=== PATIENT | female | born 1985 | race Caucasian/White ===

== ENCOUNTER → 2020-01-12 | Outpatient (CLI) | payer SELFPAY ==
--- NOTE | 2020-01-12 18:27 | Diagnostic Imaging Report ---
PROCEDURE: US Non-ob pelvis comp/trans. TECHNIQUE: Multiple realtime grayscale images were obtained of the pelvis in various projections endovaginally. Transabdominal imaging was also performed. INDICATION: Chronic pelvic pain COMPARISON: None available. FINDINGS: The uterus measures 7.3 x 4.0 x 5.3 cm. The myometrium has diffuse heterogeneous echogenicity without discrete mass. The endometrium measures up to 0.3 cm where visualized, and is normal in echogenicity. At the apex of the endometrial canal, there is an anechoic cystic structure measuring 1.3 x 1.2 cm. The right ovary measures 3.2 x 1.4 x 2.6 cm. The left ovary measures 3.8 x 2.2 x 3.3 cm. Both ovaries are physiologic in appearance. Blood flow is seen in both ovaries on color doppler imaging. No suspicious adnexal mass or fluid collection. No free pelvic fluid. IMPRESSION: 1. Cystic structure in the fundus of the uterus is indeterminate. This may represent some trapped fluid within the endometrial canal. Consider followup pelvic ultrasound in 6-12 weeks for reassessment. 2. Physiologic appearance of the ovaries. Dictated by: Dictated on workstation # [id number]
== END ==
LOC: RAD 11:56
PROVIDERS: ATTEND Obstetrics & Gynecology
DX: N85.8 Other specified noninflammatory disorders of uterus (principal)
CPT/HCPCS: 76830; 76856

== ENCOUNTER 2020-02-17 10:25 | Outpatient (RCR) | payer SELFPAY ==
[~2020-02-17] VITALS: Ht 152 cm; Wt 56.8 kg
[~2020-02-17 10:25] MED LIST: RT-ALBUINH IH
== END 2020-02-17 10:27 | disposition home or self-care (01) ==
LOC: PREOP 10:25
PROVIDERS: ATTEND Obstetrics & Gynecology
DX: Z01.818 Encounter for other preprocedural examination (principal)

== ENCOUNTER 2021-08-20 18:37 | Emergency (ER) | payer SELFPAY ==
[~2021-08-20] VITALS: Ht 152 cm; Wt 58.9 kg
[2021-08-20 18:45] VITALS: BP 150/102
--- NOTE | 2021-08-20 18:51 | ED GU-Female ---
General Stated Complaint: PELVIC PAIN History of Present Illness Date Seen by Provider: August 20, 2021 Time Seen by Provider: 18:47 Initial Comments 36 year old female presents for pelvic pain that has been present for several years. Over the last 3-4 months it has worsened, she takes ibuprofen but hasn't taken any today. Symptoms are not worse today, then they have been for the last few months. She was scheduled for biopsy with Dr. Potter approx 2 months ago after cysts/mass were noted on Ultrasound but "didn't get up her for the surgery." No other excuse provided. Patient is unsure if Ultrasound was completed in the office or hospital. Last reported US at this facility was 01/12/20 and showed cystic structure in uterus. She reports occasional vaginal bleeding, but no regular cycle. Had tubal ligation in the past and known uterine cysts. Denies vomiting or diarrhea, but occasional nausea. Patient called Dr. Potter's office and was told by a boarding mother to come to an ED to have a work up. She was referred to Dr. Potter by [facility]. She has difficulty urinating, at times but is always able to urinate throughout the day. Timing/Duration: intermittent Severity/Quality: moderate Location: suprapubic Activities at Onset: none Associated Symptoms: abdominal pain, dysuria (chronic for approx 2 years); No fever/chills, No lower back pain; nausea/vomiting (JAY JAY SADLER) Allergies and Home Medications Allergies Coded Allergies: No Known Drug Allergies (Unverified , 02/17/20) Patient Home Medication List Home Medication List Reviewed: Yes (JAY JAY SADLER) Albuterol Sulfate (Proair Hfa) 1 Puff Puff, 2 PUFF IH Q4H PRN for SHORTNESS OF BREATH, (Reported) Entered as Reported by: WALLACE MCCLAIN on 02/17/20 1001 Ibuprofen (Ibuprofen) 800 Mg Tablet, 800 MG PO Q8H PRN for PAIN Prescribed by: JAY JAY SADLER on 08/20/211956 Review of Systems Review of Systems Constitutional: no symptoms reported, see HPI Genitourinary: see HPI, other (JAY JAY SADLER) Past Acmjuvj-Ouehjm-Vlyzyt Hx Seasonal Allergies Seasonal Allergies: Yes (JAY JAY SADLER) Past Medical History Surgeries: Yes (LAPAROSCOPY X2) Adenoidectomy, Tonsillectomy Respiratory: Yes Asthma Cardiac: No Neurological: Yes Headaches /Migraines Female Reproductive Disorders: Menstrual Problems Sexually Transmitted Disease: No HIV/AIDS: No Genitourinary: No Gastrointestinal: Yes Gastroesophageal Reflux Musculoskeletal: Yes Arthritis Endocrine: No HEENT: Yes (GLASSES/CONTACTS) Loss of Vision: Denies Hearing Impairment: Denies Cancer: No Psychosocial: No Integumentary: No Blood Disorders: No (HX ANEMIA) Adverse Reaction/Blood Tranf: No (N/A) (JAY JAY SADLER) Physical Exam Vital Signs Vital Signs - First Documented 08/20/21 18:45 Temp 36.5 Pulse 120 Resp 20 B/P (MAP) 150/102 (118) Pulse Ox 97 O2 Delivery Room Air (SAMANTHA DELCID MD) Vital Signs Capillary Refill : (JAY JAY SADLER) Height, Weight, BMI Height: '" Weight: lbs. oz. kg; 24.58 BMI Method: General Appearance: WD/WN, no apparent distress Cardiovascular: normal peripheral pulses, no edema, no JVD, no murmur, tachycardia Respiratory: chest non-tender, lungs clear, normal breath sounds Gastrointestinal: normal bowel sounds, soft; No distended, No guarding, No rebound; tenderness (generalized ); No mass Neurologic/Psychiatric: no motor/sensory deficits, alert, normal mood/affect, oriented x 3 (JAY JAY SADLER) Progress/Results/Core Measures Suspected Sepsis SIRS Temperature: Pulse: Respiratory Rate: Laboratory Tests 08/20/21 19:02: White Blood Count 7.2 Blood Pressure / Mean: Laboratory Tests 08/20/21 19:02: Creatinine 0.74, Platelet Count 418H, Total Bilirubin 0.5 (JAY JAY SADLER) Results/Orders Lab Results Laboratory Tests Test 08/20/21 18:47 08/20/21 19:02 Range/Units Urine Color YELLOW Urine Clarity CLEAR Urine pH 7.0 5-9 Urine Specific [place] 1.015 L 1.016-1.022 Urine Protein NEGATIVE NEGATIVE Urine Glucose (UA) NEGATIVE NEGATIVE Urine Ketones NEGATIVE NEGATIVE Urine Nitrite NEGATIVE NEGATIVE Urine Bilirubin NEGATIVE NEGATIVE Urine Urobilinogen 0.2 < = 1.0 MG/DL Urine Leukocyte Esterase NEGATIVE NEGATIVE Urine RBC (Auto) NEGATIVE NEGATIVE Urine RBC NONE /HPF Urine WBC NONE /HPF Urine Squamous Epithelial Cells 2-5 /HPF Urine Crystals NONE /LPF Urine Amorphous Sediment MOD ANGÉLICA URATES H /LPF Urine Bacteria NEGATIVE /HPF Urine Casts NONE /LPF Urine Mucus NEGATIVE /LPF Urine Culture Indicated NO Urine Opiates Screen NEGATIVE NEGATIVE Urine Oxycodone Screen NEGATIVE NEGATIVE Urine Methadone Screen NEGATIVE NEGATIVE Urine Propoxyphene Screen NEGATIVE NEGATIVE Urine Barbiturates Screen NEGATIVE NEGATIVE Ur Tricyclic Antidepressants Screen NEGATIVE NEGATIVE Urine Phencyclidine Screen NEGATIVE NEGATIVE Urine Amphetamines Screen POSITIVE H NEGATIVE Urine Methamphetamines Screen POSITIVE H NEGATIVE Urine Benzodiazepines Screen NEGATIVE NEGATIVE Urine Cocaine Screen NEGATIVE NEGATIVE Urine Cannabinoids Screen NEGATIVE NEGATIVE White Blood Count 7.2 4.3-11.0 10^3/uL Red Blood Count 5.10 3.80-5.11 10^6/uL Hemoglobin 15.2 11.5-16.0 g/dL Hematocrit 45 35-52 % Mean Corpuscular Volume 88 80-99 fL Mean Corpuscular Hemoglobin 30 25-34 pg Mean Corpuscular Hemoglobin Concent 34 32-36 g/dL Red Cell Distribution Width 11.9 10.0-14.5 % Platelet Count 418 H 130-400 10^3/uL Mean Platelet Volume 8.1 L 9.0-12.2 fL Immature Granulocyte % (Auto) 0 % Neutrophils (%) (Auto) 50 42-75 % Lymphocytes (%) (Auto) 37 12-44 % Monocytes (%) (Auto) 8 0-12 % Eosinophils (%) (Auto) 5 0-10 % Basophils (%) (Auto) 1 0-10 % Neutrophils # (Auto) 3.6 1.8-7.8 10^3/uL Lymphocytes # (Auto) 2.6 1.0-4.0 10^3/uL Monocytes # (Auto) 0.6 0.0-1.0 10^3/uL Eosinophils # (Auto) 0.3 0.0-0.3 10^3/uL Basophils # (Auto) 0.1 0.0-0.1 10^3/uL Immature Granulocyte # (Auto) 0.0 0.0-0.1 10^3/uL Sodium Level 139 135-145 MMOL/L Potassium Level 4.2 3.6-5.0 MMOL/L Chloride Level 102 98-107 MMOL/L Carbon Dioxide Level 25 21-32 MMOL/L Anion Gap 12 5-14 MMOL/L Blood Urea Nitrogen 12 7-18 MG/DL Creatinine 0.74 0.60-1.30 MG/DL Estimat Glomerular Filtration Rate 109 BUN/Creatinine Ratio 16 Glucose Level 90 70-105 MG/DL Calcium Level 9.4 8.5-10.1 MG/DL Corrected Calcium 9.4 8.5-10.1 MG/DL Total Bilirubin 0.5 0.1-1.0 MG/DL Aspartate Amino Transf (AST/SGOT) 13 5-34 U/L Alanine Aminotransferase (ALT/SGPT) 18 0-55 U/L Alkaline Phosphatase 62 40-136 U/L Total Protein 6.9 6.4-8.2 GM/DL Albumin 4.0 3.2-4.5 GM/DL (SAMANTHA DELCID MD) Vital Signs/I&O 08/20/21 18:45 Temp 36.5 Pulse 120 Resp 20 B/P (MAP) 150/102 (118) Pulse Ox 97 O2 Delivery Room Air (SAMANTHA DELCID MD) Vital Signs/I&O Capillary Refill : (JAY JAY SADLER) Progress Note : Time: 18:47 Progress Note Patient seen and evaluated, explained ultrasound services are available on an emergent basis only for specific criteria on the weekends/evenings. May consider CT, pending her labs. She did not wish to proceed with CT. Will give Toradol 30 mg IV. 1929 patient reports mild improvement in her symptoms after the Toradol. Discussed options at this time, she will proceed with outpatient follow-up with Dr. Potter. She will call for an appointment discharge instructions and return precautions reviewed with her. (JAY JAY SADLER) Departure Impression Primary Impression: Uterine cyst Disposition: 01 HOME, SELF-CARE Condition: Stable Departure-Patient Inst. Decision time for Depature: 19:15 (JAY JAY SADLER) Referrals: [facility] (PCP/Family) Primary Care Physician Patient Instructions: Uterine Fibroids (DC) Add. Discharge Instructions: Call Dr. Potter's office tomorrow for a follow-up appointment. Keep all scheduled appointments with Dr. Potter. You may alternate between Tylenol 650 mg and ibuprofen 800 mg every 4 hours for pain or discomfort. Return to the emergency department for new, urgent healthcare needs. Scripts Ibuprofen (Ibuprofen) 800 Mg Tablet 800 MG PO Q8H PRN for PAIN, #30 TAB 0 Refills Prov: JAY JAY SADLER 08/20/21 ATTENDING PHYSICIAN NOTE: I was physically present as attending physician in the emergency department during the care of this patient, but I was not directly involved in the decision making or delivery of care for this patient. (SAMANTHA DELCID MD) Copy Copies To 1: LORETTA POTTER AMY ARNP August 20, 2021 18:51 SAMANTHA DELCID MD August 21, 2021 04:33
[2021-08-20 18:54] LABS: BILIRUBIN,URINE NEGATIVE (NEGATIVE); CLARITY,URINE CLEAR; COLOR,URINE YELLOW; GLUCOSE, URINE (UA) NEGATIVE (NEGATIVE); KETONES,URINE NEGATIVE (NEGATIVE); LEUKOCYTE ESTERASE ,URINE NEGATIVE (NEGATIVE); NITRITE,URINE NEGATIVE (NEGATIVE); PROTEIN,URINE NEGATIVE (NEGATIVE)
[2021-08-20 19:00] LABS: AMORPHOUS SEDIMENT,UR MOD AMOR URATES /LPF; BACTERIA,URINE NEGATIVE /HPF
[2021-08-20] MEDS ORDERED: KETOROLAC 30 MG/ML VIAL IVP STA (19:05)
[2021-08-20 19:10] LABS: BASOPHILS # (AUTO) 0.1 10^3/uL (0.0-0.1); BASOPHILS % (AUTO) 1 % (0-10); EOSINOPHILS # (AUTO) 0.3 10^3/uL (0.0-0.3); EOSINOPHILS % (AUTO) 5 % (0-10); HEMATOCRIT 45 % (35-52); HEMOGLOBIN 15.2 g/dL (11.5-16.0); LYMPHOCYTES # (AUTO) 2.6 10^3/uL (1.0-4.0); LYMPHOCYTES % (AUTO) 37 % (12-44); MEAN CORPUSCULAR HEMOGLOBIN 30 pg (25-34); MEAN CORPUSCULAR HGB CONC 34 g/dL (32-36); MEAN CORPUSCULAR VOLUME 88 fL (80-99); MEAN PLATELET VOLUME 8.1 fL (9.0-12.2); MONOCYTES # (AUTO) 0.6 10^3/uL (0.0-1.0); MONOCYTES % (AUTO) 8 % (0-12); NEUTROPHILS # (AUTO) 3.6 10^3/uL (1.8-7.8); NEUTROPHILS % (AUTO) 50 % (42-75); PLATELET COUNT 418 10^3/uL (130-400); WHITE BLOOD COUNT 7.2 10^3/uL (4.3-11.0)
[2021-08-20] MEDS ORDERED: NS IV 1000 ML 1,000 ML IV SCH (19:15)
[2021-08-20 19:19] LABS: POTASSIUM 4.2 MMOL/L (3.6-5.0)
[2021-08-20 19:20] LABS: CALCIUM 9.4 MG/DL (8.5-10.1)
[2021-08-20 19:22] LABS: TOTAL PROTEIN 6.9 GM/DL (6.4-8.2)
[2021-08-20 19:23] LABS: BILIRUBIN,TOTAL 0.5 MG/DL (0.1-1.0)
[2021-08-20 19:25] LABS: CREATININE SERUM 0.74 MG/DL (0.60-1.30)
[2021-08-20 19:38] LABS: AMPHETAMINE SCREEN, URINE POSITIVE (NEGATIVE); BARBITURATE SCREEN URINE NEGATIVE (NEGATIVE); BENZODIAZEPINES SCREEN URINE NEGATIVE (NEGATIVE); CANNABINOID SCREEN, URINE NEGATIVE (NEGATIVE); COCAINE SCREEN URINE NEGATIVE (NEGATIVE); METHADONE STAT NEGATIVE (NEGATIVE); OPIATE SCREEN URINE NEGATIVE (NEGATIVE); OXYCODONE STAT NEGATIVE (NEGATIVE); PROPOXYPHENE STAT NEGATIVE (NEGATIVE); TRICYCLIC ANTIDEPRESSANTS SCRE NEGATIVE (NEGATIVE)
[2021-08-20] MEDS ORDERED: IBUP-1780 PO (19:57)
== END 2021-08-20 20:06 | disposition home or self-care (01) ==
LOC: EDUNIT# 18:37 → ER 18:39
DX: N85.8 Other specified noninflammatory disorders of uterus (principal)
CPT/HCPCS: 36415; 80053; 80306; 81000; 84703; 85025